=== PATIENT | female | born 1975 | race Two or more races ===

== ENCOUNTER 2024-07-27 11:06 | Emergency (ER) | payer MEDICAID, OTHER ==
[~2024-07-27] VITALS: Ht 152.4 cm; Wt 63.0 kg
--- NOTE | 2024-07-27 11:26 | ED.PDOC ---
SOB-HPI HPI Comments 49y F who presents to the ED via EMS for chief complaint of shortness of breath. EMS states pt has been having shortness of breath with abdominal pain for the past 1 days. Pt states she was seen at [facility] ER yesterday and states she was dx with pneumonia and dx with antibiotics and Meds for his abdominal pain. Pt states earlier this AM, she started to have shortness of breath and continued abdominal pain and called EMS to the scene. EMS arrived on scene and pt was noted to have stable vitals. Pt states she felt stressed due to recent upcoming birthday of recently daughter and it has been causing her increased stress. Pt otherwise denies any other symptoms at this time. 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: Denies all SPA EXPERIENCE COORDINATOR Hx Family History Family History: Unknown Social History Smoker: Quit Less Than 1 Year Alcohol: Denies ETOH Use Drugs: Marijuana Lives In: Home Constitutional: denies: chills, diaphoresis, fatigue, fever, malaise, sweats, weakness, others EENTM: denies: blurred vision, double vision, ear bleeding, ear discharge, ear drainage, ear pain, ear ringing, eye pain, eye redness, hearing loss, mouth amarilis n, mouth swelling, nasal discharge, nose bleeding, nose congestion, nose pain, photophobia, tearing, throat pain, throat swelling, voice changes, others Respiratory: reports: shortness of breath; denies: cough, hemoptysis, orthopnea, SOB at rest, SOB with excertion, stridor, wheezing, others Cardiovascular: denies: chest pain, dizzy spells, diaphoresis, Dyspnea on exertion, edema, irregular heart beat, left arm pain, lightheadedness, palpitati ons, PND, syncope, others Gastrointestinal: reports: abdominal pain; denies: abdomen distended, blood streaked bowels, constipated, diarrhea, dysphagia, difficulty swallowing, hematemesis, melena, nausea, poor appetite, poor fluid intake, rectal bleeding, rectal pain, vomiting, others Genitourinary: denies: abnormal vagina bleeding, burning, dyspareunia, dysuria, flank pain, frequency, hematuria, incontinence, pain, , vagina discharge, urgency, others Neurological: denies: dizziness, fainting, headache, left sided numbness, left sided weakness, numbness, paresthesia, pre-existing deficit, right sided numbness, right sided weakness, seizure, speech problems, tingling, tremors, weakness, others Musculoskeletal: denies: back pain, gout, joint pain, joint swelling, muscle pain, muscle stiffness, neck pain, others Integumetry: denies: bruises, change in color, change in hair/nails, dryness, laceration, lesions, lumps, rash, wounds, others Allergic/Immunocompromised: denies: Difficulty Healing, Frequent Infections, Hives, Itching, others Hematologic/Lymphatic: denies: anemia, blood clots, easy bleeding, easy bruising, swollen glands, others Endocrine: denies: excessive hunger, excessive sweating, excessive thirst, excessive urination, flushing, intolerance to cold, intolerance to heat, unexplained weight gain, unexplained weight loss, others Psychiatric: denies: anxiety, bipolar disorder, depression, hopeless, panic dis order, schizophrenia, sleepless, suicidal, others All Other Systems: Reviewed and Negative Physical Exam General Appearance: No Apparent Distress HEENT: Normal ENT Inspection, Pharynx Normal, TMs Normal Neck: Full Range of Motion, Non-Tender, Normal, Normal Inspection Respiratory: Chest Non-Tender, Lungs Clear, No Accessory Muscle Use, No Respiratory Distress, Normal Breath Sounds Cardiovascular: No Edema, No JVD, No Murmur, No Gallop, Normal Peripheral Pulses, Regular Rate/Rhythm Breast Exam: Deferred Gastrointestinal: No Organomegaly, Non Tender, No Pulsatile Mass, Normal Bowel Sounds, Soft Genitalia: Deferred Pelvic: Deferred Rectal: Deferred Extremities: No calf tenderness, Normal capillary refill, Normal inspection, Normal range of motion, Non-tender, No pedal edema Musculoskeletal : Apperance: Normal Neurologic: Alert, audit senior associate II-XII nml as Tested, No Motor Deficits, Normal Affect, Normal Mood, No Sensory Deficits Cerebellar Function: Normal Reflexes: Normal Skin: Dry, Normal Color, Warm Lymphatic: No Adenopathy EKG EKG : Pulse Rate (adult): 81 [place]: Normal Cardiac Rhythm: NSR Block: None Hypertrophy: LAE ST: Normal Was a procedure done? Was a procedure done?: No Differential Dx Differential Diagnosis: Anxiety, Pneumonia, Respiratory Distress, Pharyngitis, URI X-Ray, Labs, Meds, VS Vital Signs Date Time Temp Pulse Resp B/P (MAP) Pulse Ox O2 Delivery O2 Flow Rate FiO2 07/27/24 11:27 81 07/27/24 11:25 81 07/27/24 11:18 98.4 84 18 141/72 (95) 99 07/27/24 11:17 18 Room Air* 0 99 21 CHEST RADIOGRAPH IMPRESSION: No acute cardiopulmonary disease. At this time, the patient was being discharged The patient will follow up with the primary care doctor The patient was to keep taking the medications The patient will return to the emergency department's the condition worsens. Images Reviewed?: Images reviewed and evaluated by me Time of 1ST Reevaluation: 12:00 Reevaluation 1ST: Unchanged Patient Education/Counseling: Diagnosis, Treatment, Prognosis, Need For Follow Up Family Education/Counseling: No Family Present Additional Information - I reviewed the following notes from patient's past medical encounters: - The following tests were ordered, and results were reviewed by me: (Labs, X- Ray, EKG): chest x-ray - Additional information was gathered from interviewing the following independent Historian: (Family, Other Providers, EMT): EMS - I reviewed and agreed with the following test results read by other provider: radiologist - I discussed treatments and results with medical personnel and: (consultants, family): none Departure 1 Departure Time of Disposition: 11:55 Impression: Primary Impression: Acute anxiety Additional Impression: Diarrhea Qualified Codes: R19.7 - Diarrhea, unspecified Disposition: 01 HOME / SELF CARE / HOMELESS Condition: Fair Discharged With: Self Critical Care Note Critical Care Time?: No Stability Stability form required: No Heart Score Heart Score: Heart Score Response (Comments) Value History N/A 0 EKG N/A 0 Age N/A 0 Risk Factors N/A 0 Troponin N/A 0 Total 0 I personally scribed for ARASELI ANDERSON MD ([email or web address]) on 07/27/24 at 11:26. Electronically submitted by Winifred Matthews ([facility] I personally scribed for ARASELI ANDERSON MD ([email or web address]) on 07/27/24 at 11:27. Electronically submitted by Winifred Matthews ([facility]). I personally scribed for ARASELI ANDERSON MD ([email or web address]) on 07/27/24 at 11:46. Electronically submitted by Winifred Matthews ([email or web address]). ARASELI ANDERSON MD Jul 27, 2024 11:26
--- NOTE | 2024-07-27 11:30 | ECG ---
[facility] Test Date: 2024-07-27 Test Time: 11:25:06 Pat Name: DANIE GUADALUPE Department: er Room: Gender: F Ncqa Specialist: gp : 1975 Requested By: ARASELI ANDERSON Order Number: [id number] Reading MD: Bari Martinez Measurements Intervals Oto Rate: 81 P: 56 GA: 142 QRS: -40 QRSD: 80 T: 59 QT: 392 QTc: 455 Interpretive Statements Sinus rhythm Left axis deviation Electronically Signed On 07-28-2024 12:00:05 PST by Bari Martinez Please click the below link to view image of tracing.
--- NOTE | 2024-07-27 11:35 | DVH ---
CHEST RADIOGRAPH Indication: cough Technique: Single frontal view of the chest was obtained Comparison: None FINDINGS: Lines and Tubes: None Lungs: No focal consolidation. Pleura: No effusion. No pneumothorax. Cardiomediastinal contours: Unremarkable Bones: No acute osseous abnormality. IMPRESSION: No acute cardiopulmonary disease.
[2024-07-27 12:03] VITALS: BP 124/62; PULSE 88; RESP 20; TEMP 98.1; O2SAT 94
== END 2024-07-27 12:27 | disposition home or self-care (01) ==
LOC: EDBD 11:06 → ER 11:15
DX: F41.9 Anxiety disorder, unspecified (principal); R19.7 Diarrhea, unspecified; J45.909 Unspecified asthma, uncomplicated; R06.02 Shortness of breath; R10.9 Unspecified abdominal pain; Z98.890 Other specified postprocedural states
CPT/HCPCS: 71045; 93005